=== PATIENT | female | born 1970 | race Caucasian/White ===

== ENCOUNTER 2016-05-31 00:36 | Emergency (ER) | payer MEDICAID ==
[2016-05-31] MEDS ORDERED: diphenhydrAMINE INJ 50 MG/ML VIAL IVP STA (01:04)
[2016-05-31] MEDS ORDERED: KETOROLAC 15 MG/ML VIAL IVP STA (01:04)
[2016-05-31] MEDS ORDERED: METOCLOPRAMIDE 10 MG/2 ML VIAL IVP STA (01:04)
[2016-05-31] MEDS ORDERED: SODIUM CHLORIDE 0.9% 1,000 ML IV ONE (01:06)
[2016-05-31] MEDS ORDERED: KETOROLAC 30 MG/ML VIAL ONE (01:08)
[2016-05-31] MEDS ORDERED: diphenhydrAMINE INJ 50 MG/ML VIAL ONE (01:08)
[2016-05-31] MEDS ORDERED: METOCLOPRAMIDE 10 MG/2 ML VIAL IVP ONE (01:09)
== END 2016-05-31 02:08 | disposition home or self-care (01) ==
DX: G43.001 Migraine without aura, not intractable, with status migrainosus (principal); I10 Essential (primary) hypertension; E11.9 Type 2 diabetes mellitus without complications; Z79.84 Long term (current) use of oral hypoglycemic drugs; K21.9 Gastro-esophageal reflux disease without esophagitis

== ENCOUNTER 2016-08-05 19:12 | Emergency (ER) | payer MEDICAID ==
[2016-08-05] MEDS ORDERED: KETOROLAC 60 MG/2 ML VIAL IM STA (19:41)
--- NOTE | 2016-08-05 19:43 | ED Physician Documentation ---
PD HPI LOWER EXT INJURY - Stated complaint Stated Complaint: R HIP PX - Chief complaint Chief Complaint: Ext Problem - History obtained from History obtained from: Patient - History of Present Illness PD HPI LOW EXT INJURY LOCATION: Right, Hip Type of injury: Other (stood up and "felt a pop") Where injury occurred: Home Timing - onset: How many hours ago (8) Timing - duration: Hours (8) Timing - details: Abrupt onset Pain level max: 8 Pain level now: 8 Improved by: Rest, Ice, Immobilization Worsened by: Moving, Palpating Associated symptoms: No: Weakness, Numbness, Tingling, Swelling Contributing factors: No: Anticoagulated, Prior ortho surgery, Prosthetic joint Recently seen: Not recently seen Review of Systems Constitutional: denies: Fever, Chills Nose: denies: Rhinorrhea / runny nose, Congestion Skin: denies: Rash Musculoskeletal: denies: Neck pain, Back pain Neurologic: denies: Focal weakness, Numbness, Confused, Altered mental status PD PAST MEDICAL HISTORY - Past Medical History Past Medical History: Yes Cardiovascular: Hypertension Respiratory: Sleep apnea, CPAP use Neuro: Headache/migraine Endocrine/Autoimmune: Type 2 diabetes GI: GERD, GI bleed LEARNING SUPPORT SPECIALIST: None, Other : None HEENT: None Psych: Depression, Anxiety Musculoskeletal: Osteoarthritis Derm: None - Past Surgical History Past Surgical History: Yes /LEARNING SUPPORT SPECIALIST: section, Tubal ligation, Hysterectomy - Present Medications Home Medications: Ambulatory Orders Medication Instructions Recorded Confirmed DULoxetine [Cymbalta] 30 mg PO BID 03/03/14 08/05/16 Losartan [Cozaar] 25 mg PO DAILY 03/03/14 08/05/16 Omeprazole [Prilosec] 40 mg PO DAILY 03/03/14 08/05/16 Pramipexole Di-HCl [Mirapex] 0.5 mg PO DAILY 03/03/14 08/05/16 Propranolol [Inderal] 40 mg PO BID 03/03/14 08/05/16 Metformin HCl [Metformin HCl ER] 500 mg PO DAILY 05/28/14 08/05/16 Dicyclomine [Bentyl] 10 mg PO QID 09/20/15 08/05/16 Hyoscyamine [Levsin] 0.125 mg SL QID 09/20/15 08/05/16 Senna [Senokot] 8.6 mg PO TID 09/20/15 08/05/16 Promethazine Supp [Phenergan Supp] 25 mg [place] Q8H PRN #10 supp 05/31/16 08/05/16 Ondansetron HCl [Zofran] 8 mg PO PRN PRN 08/05/16 08/05/16 - Allergies Allergies/Adverse Reactions: Allergies Allergy/AdvReac Type Severity Reaction Status Date / Time amoxicillin [Amoxicillin] Allergy Intermediate Hives Verified 08/09/14 13:12 codeine [Codeine] Allergy Intermediate Hallucinati Verified 08/09/14 13:12 ons hydromorphone HCl * Allergy Intermediate Dizziness Verified 08/09/14 13:12 [From Dilaudid] ziprasidone HCl * Allergy Intermediate Hives Verified 08/09/14 13:12 [From Geodon] ziprasidone mesylate * Allergy Intermediate Hives Verified 08/09/14 13:12 [From Geodon] azithromycin Allergy Hives Verified 09/20/15 20:25 oxcarbazepine Allergy Itching Verified 08/09/14 13:12 [From Trileptal] Sulfa (Sulfonamide Allergy Dizziness Verified 08/09/14 13:12 Antibiotics) - Social History Does the pt smoke?: No Smoking Status: Never smoker Does the pt drink ETOH?: No Does the pt have substance abuse?: No - Immunizations Immunizations are current?: Yes - POLST Patient has POLST: No PD ED PE NORMAL - Vitals Vital signs reviewed: Yes - General General: Alert and oriented X 3, No acute distress - HEENT HEENT: Moist mucous membranes - Neck Neck: Supple, no meningeal sign - Cardiac Cardiac: RRR - Respiratory Respiratory: No respiratory distress, Clear bilaterally - Derm Derm: Warm and dry - Extremities Extremities: Other (R hip - Tenderness palpation about the right thigh, Proximal aspect. No ecchymosis, no swelling. Pain with internal and external rotation of the right hip. Neurovascularly intact) - Neuro Neuro: Alert and oriented X 3 Results - Vitals Vitals: Vital Signs - 24 hr 08/05/16 08/05/16 19:20 21:09 Temperature 36.4 C L 37.0 C Heart Rate 108 H 94 Respiratory 18 18 Rate Blood Pressure 150/97 H 143/97 H O2 Saturation 100 97 Oxygen O2 Source Room air - Rads (name of study) Right hip x-ray Radiology: Prelim report reviewed, EMP read contemporaneously, See rad report ( No acute abnormality) PD MEDICAL DECISION MAKING - ED course Complexity details: reviewed results, re-evaluated patient, considered differential, d/w patient ED course: Patient is a 46-year-old female who presents to the emergency department with a right hip strain. No acute findings on x-ray. She has most trouble getting up , but was able to do this with a walker. She is allergic to most pain medications, but cannot take Toradol and so this was given to her. No neurological deficits. Will continue supportive care and follow-up with her doctor. Patient counseled regarding signs and symptoms for which I believe and urgent re-evaluation would be necessary. Patient with good understanding of and agreement to plan and is comfortable going home at this time This document was made in part using voice recognition software. While efforts are made to proofread this document, sound alike and grammatical errors may occur. Departure - Departure Disposition: 01 Home, Self Care Clinical Impression: Strain of hip Qualifiers: Encounter type: initial encounter Laterality: right Qualified Code(s): S76.011A - Strain of muscle, fascia and tendon of right hip, initial encounter Condition: Good Instructions: ED Sprain Hip, ED Strain Groin Follow-Up: ARANZA GARCIA MD [Primary Care Provider] - Within 1 week Comments: Use the crutches at home. Return if you worsen. Your xrays are normal use ice at home. You can also try a hip spica brace and see if this helps. Discharge Date/Time: 08/05/16 21:30
[2016-08-05] MEDS ORDERED: KETOROLAC 60 MG/2 ML VIAL ONE (19:44)
--- NOTE | 2016-08-05 20:28 | XRAY Preliminary Report ---
Exam: XR Hip w/Pelvis 2-3V RT IMPRESSION: Normal pelvis and hip radiography. [facility] SITE ID: [id number]
--- NOTE | 2016-08-05 20:30 | XRAY Report ---
EXAM: RIGHT HIP AND PELVIS RADIOGRAPHY EXAM DATE: 08/05/2016 08:20 PM. HISTORY: R hip pain, felt a pop. No trauma. COMPARISONS: None. TECHNIQUE: 1 view of the pelvis and 1 view of the hip. FINDINGS: Bones: Normal. No fracture or bone lesion. Joints: The bilateral hip, pubis symphysis, and sacroiliac joints are preserved. Soft Tissues: Normal. No soft tissue swelling. IMPRESSION: Normal pelvis and hip radiography. [facility] Referring Provider Line: [phone] SITE ID: [id number]
[2016-08-05 21:10] VITALS: BP 143/97
== END 2016-08-05 21:30 | disposition home or self-care (01) ==
LOC: ED 19:12
DX: S76.011A Strain of muscle, fascia and tendon of right hip, initial encounter (principal); X58.XXXA Exposure to other specified factors, initial encounter; Y92.009 Unspecified place in unspecified non-institutional (private) residence as the place of occurrence of the external cause; I10 Essential (primary) hypertension; E11.9 Type 2 diabetes mellitus without complications; Z79.84 Long term (current) use of oral hypoglycemic drugs
CPT/HCPCS: 96372; 99283